=== PATIENT | female | born 1990 | race Caucasian/White ===

== ENCOUNTER 2016-10-24 22:08 | Emergency (ER) | payer MEDICAID, OTHER ==
[~2016-10-24] VITALS: Ht 162.6 cm; Wt 61.5 kg
[2016-10-24 22:12] VITALS: Ht 162.6 cm; Wt 61.5 kg
--- NOTE | 2016-10-25 01:54 | RADRPT ---
PROCEDURE: Noncontrast CT Head. CLINICAL INDICATION: Headache TECHNIQUE: Noncontrast CT of the head was obtained. The administered radiation dose was CTDI vol = 45 mGy, DLP = 720 mGy-cm. COMPARISON: No pertinent prior examinations were submitted for comparison. FINDINGS: The ventricles and sulci are within normal limits. There is no acute intracranial hemorrhage or ext ra-axial fluid collection. There is no mass effect. No midline shift is identified. There is no loss of lopez-white differentiation to suggest acute infarction. The orbits are within normal limits. The paranasal sinuses and mastoid air cells are without fluid. No destructive osseous lesion is identified. IMPRESSION: No acute findings. RPTAT: HIKT .Roel Strong MD, MD Date Time Electronically viewed and signed by .Roel Strong MD, on 10/25/2016 01:53 .T/
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
[2016-10-25] MEDS ORDERED: IBUP-1542 PO (02:15)
[2016-10-25] MEDS ORDERED: ONDA4TAB14 PO (02:15)
[2016-10-25] MEDS ORDERED: IBUPROFEN 600 MG TAB PO ONE (02:30)
[2016-10-25 02:46] VITALS: BP 109/73; PULSE 89; RESP 18; TEMP 99
== END 2016-10-25 02:47 | disposition home or self-care (01) ==
LOC: E/R 22:08
DX: S06.0X1A Concussion with loss of consciousness of 30 minutes or less, initial encounter (principal); R40.2252 Coma scale, best verbal response, oriented, at arrival to emergency department; R40.2142 Coma scale, eyes open, spontaneous, at arrival to emergency department; R40.2362 Coma scale, best motor response, obeys commands, at arrival to emergency department; V49.50XA Passenger injured in collision with unspecified motor vehicles in traffic accident, initial encounter
CPT/HCPCS: 70450; Z7502; Z7610

== ENCOUNTER 2018-02-28 21:57 | Emergency (ER) | END 2018-03-01 02:05 | disposition home or self-care (01) ==